=== PATIENT | male | born 1990 | race Caucasian/White ===

== ENCOUNTER → 2018-10-22 | Outpatient (CLI) | payer BC ==
--- NOTE | 2018-10-23 13:13 | MR ---
EXAMINATION TYPE: MR shoulder LT wo con DATE OF EXAM: 10/22/2018 COMPARISON: None HISTORY: Left shoulder pain x 7 months TECHNIQUE: Multiplanar, multisequence imaging of the left shoulder is performed without contrast. FINDINGS: Rotator Cuff: There is a low-grade partial-thickness bursal surface tear of the infraspinatus measuri ng 0.7 x 0.5 cm and additional punctate bursal surface tear of the infraspinatus measuring 0.4 cm. Bu rsal surface fiber fraying is seen of the supraspinatus and infraspinatus with mild tendinopathy of b oth tendons. Acromioclavicular Joint: There is moderate acromioclavicular arthropathy with small marginal osteophy miesha, capsular hypertrophy and few subchondral cysts. There is slight downsloping of the acromion crea ting internal impingement of the supraspinatus without significant signal alteration of the myotendin ous junction of the supraspinatus currently. Glenohumeral Joint: No significant narrowing. Labrum: The posterior inferior glenoid labrum appears diminutive raising suspicion for tear. Remainde r of the glenoid labrum appears unremarkable. Biceps Tendon: The long head of biceps is in normal location within bicipital groove. Bone marrow signal: No focal abnormal marrow signal is appreciated. Other: Trace amount of fluid is seen within the subcoracoid bursa and subdeltoid/subacromial bursa th at may clinically correlate with bursitis. IMPRESSION: 1. Low-grade subcentimeter partial-thickness bursal surface tears of the infraspinatus. 2. Mild supraspinatus and infraspinatus tendinopathy. 3. Moderate acromioclavicular arthropathy and downsloping of acromion resulting in mild supraspinatus internal impingement. 4. Diminutive caliber of the posterior inferior glenoid labrum raising suspicion for tear. Limited gi imer nonarthrographic technique. 5. Trace amount of fluid in the subcoracoid and subdeltoid/subacromial bursa may clinically correlate with bursitis.
== END | disposition home or self-care (01) ==
LOC: RADMRIMAIN 06:15
PROVIDERS: ATTEND Orthopaedic Surgery
DX: M75.112 Incomplete rotator cuff tear or rupture of left shoulder, not specified as traumatic (principal); M19.012 Primary osteoarthritis, left shoulder; M75.92 Shoulder lesion, unspecified, left shoulder